=== PATIENT | male | born 1965 | race Caucasian/White ===

== ENCOUNTER 2023-04-17 09:17 | Emergency (ER) | payer BC ==
[~2023-04-17] VITALS: Ht 193 cm; Wt 113.4 kg
[~2023-04-17 09:17] MED LIST: LISI40TA9 PO
[2023-04-17 09:37] LABS: BASOPHILS # (AUTO) 0.1 10^3/uL (0.0-0.1); BASOPHILS % (AUTO) 1 % (0-10); EOSINOPHILS # (AUTO) 0.1 10^3/uL (0.0-0.3); EOSINOPHILS % (AUTO) 1 % (0-10); HEMATOCRIT 43 % (40-54); HEMOGLOBIN 14.9 g/dL (13.3-17.7); LYMPHOCYTES # (AUTO) 1.5 10^3/uL (1.0-4.0); LYMPHOCYTES % (AUTO) 27 % (12-44); MEAN CORPUSCULAR HEMOGLOBIN 32 pg (25-34); MEAN CORPUSCULAR HGB CONC 35 g/dL (32-36); MEAN CORPUSCULAR VOLUME 92 fL (80-99); MEAN PLATELET VOLUME 8.3 fL (9.0-12.2); MONOCYTES # (AUTO) 0.5 10^3/uL (0.0-1.0); MONOCYTES % (AUTO) 9 % (0-12); NEUTROPHILS # (AUTO) 3.4 10^3/uL (1.8-7.8); NEUTROPHILS % (AUTO) 61 % (42-75); PLATELET COUNT 321 10^3/uL (130-400); WHITE BLOOD COUNT 5.5 10^3/uL (4.3-11.0)
--- NOTE | 2023-04-17 09:41 | ED Chest Pain ---
General Chief Complaint: Chest Pain Stated Complaint: CHEST PAINS Nursing Triage Note: PT AMB TO RM 2 WITH COMPLAINT OF CP. STATES PAIN STARTED THIS MORNING AROUND 7AM. STATES BOTH ARMS ARE NUMB AND HAS JAW PAIN. TOOK 325 [facility] BUREAU DIRECTOR. STATES PT HAD CALCIFICATION TEST DONE RECENTLY, AND HAS FOLLOW UP APPOINTMENT WITH DR BARAHONA IN MAY. PT ALSO COMPLAINING OF FEELING LIGHTHEAD AND DIZZY. Source: patient (RENATA GRANT) History of Present Illness Date Seen by Provider: Apr 17, 2023 Time Seen by Provider: 09:30 Initial Comments 9:30 - Patient presents with his to the ED. He says that he woke up at 7 am this morning with chest discomfort, and pain and numbness in bilateral arms as well as his jaw. He says that he is not having any radiation to his back or shoulder. He states that he is feeling light headed and dizzy at this time. His believes that he looks more flush than he normally does. He recently had a calcification test done that they say did not show good results. They have an appointment with their actuarial mathematician in May. He denies any nausea, vomiting, fever, edema, headache or visual problems. 10:50 - Patients lab work comes back unremarkable, as well as his chest X-ray. He states that he his chest pain has gotten better but his chest still feels "funny." He says that the numbness and tingling in his arms and hands has ceased at this time. He says that his discomfort is minimal right now compared to a 4/10 earlier when presented. He is good with the plan to draw labs again at 11:25. Timing/Duration: 1-3 hours Location: central Radiation: jaw, arms (bilateral) Activities at Onset: none Prior CP/Workup: angina, other (coronary artery scan) [facility]SA po BUREAU DIRECTOR: Yes Associated Symptoms: diaphoresis, dizziness, weakness (RENATA GRANT) Allergies and Home Medications Allergies Coded Allergies: No Known Drug Allergies (Verified , 08/03/15) Patient Home Medication List Home Medication List Reviewed: Yes (RENATA GRANT) Home Medication List Reviewed: Yes (TABITHA COTA DO) Lisinopril (Lisinopril) 40 Mg Tablet, 40 MG PO DAILY, (Reported) Entered as Reported by: HILARY MCCLURE on 07/30/15 1050 Review of Systems Review of Systems Constitutional: diaphoresis, dizziness, weakness EENTM: No Symptoms Reported Respiratory: No Symptoms Reported; Denies Orthopnea, Denies Shortness of Air Cardiovascular: Chest Pain; Denies Edema; Lightheadedness; Denies Syncope Gastrointestinal: No Symptoms Reported Skin: change in hair/nails (longitudinal ridging) Psychiatric/Neurological: No Symptoms Reported (RENATA GRANT) All Other Systems Reviewed Negative Unless Noted: Yes (RENATA GRANT) Past Dxdbsrm-Twwzom-Ecanss Hx Patient Social History Tobacco Use?: No Use of E-Cig and/or Vaping dev: No Substance use?: No Alcohol Use?: Yes Alcohol type: Beer Alcohol Frequency: Daily Pt feels they are or have been: No (RENATA GRANT) Physical Exam Vital Signs Vital Signs - First Documented 04/17/23 09:19 Temp 36.4 Pulse 86 Resp 25 B/P (MAP) 172/97 (122) Pulse Ox 96 O2 Delivery Room Air (DETAR,TABITHA W DO) Vital Signs Capillary Refill : Less Than 3 Seconds (RENATA GRANT) Height, Weight, BMI Height: 6'4.00" Weight: 240lbs. 0.0oz. [id number]; 30.00 BMI Method: General Appearance: No Apparent Distress, WD/WN Neck: Non Tender, Supple Respiratory: Lungs Clear, Normal Breath Sounds, No Accessory Muscle Use, No Respiratory Distress Cardiovascular: Regular Rate, Rhythm, No Edema, No Gallop, No Murmur Extremity: Non Tender, No Calf Tenderness Neurologic/Psychiatric: Alert, Oriented x3 (RENATA GRANT) Progress/Results/Core Measures Results/Orders Lab Results Laboratory Tests Test 04/17/23 09:25 04/17/23 11:25 Range/Units White Blood Count 5.5 4.3-11.0 10^3/uL Red Blood Count 4.69 4.30-5.52 10^6/uL Hemoglobin 14.9 13.3-17.7 g/dL Hematocrit 43 40-54 % Mean Corpuscular Volume 92 80-99 fL Mean Corpuscular Hemoglobin 32 25-34 pg Mean Corpuscular Hemoglobin Concent 35 32-36 g/dL Red Cell Distribution Width 12.3 10.0-14.5 % Platelet Count 321 130-400 10^3/uL Mean Platelet Volume 8.3 L 9.0-12.2 fL Immature Granulocyte % (Auto) 0 % Neutrophils (%) (Auto) 61 42-75 % Lymphocytes (%) (Auto) 27 12-44 % Monocytes (%) (Auto) 9 0-12 % Eosinophils (%) (Auto) 1 0-10 % Basophils (%) (Auto) 1 0-10 % Neutrophils # (Auto) 3.4 1.8-7.8 10^3/uL Lymphocytes # (Auto) 1.5 1.0-4.0 10^3/uL Monocytes # (Auto) 0.5 0.0-1.0 10^3/uL Eosinophils # (Auto) 0.1 0.0-0.3 10^3/uL Basophils # (Auto) 0.1 0.0-0.1 10^3/uL Immature Granulocyte # (Auto) 0.0 0.0-0.1 10^3/uL Prothrombin Time 12.6 12.2-14.7 SEC INR Comment 0.9 0.8-1.4 Activated Partial Thromboplast Time 28 24-35 SEC Sodium Level 132 L 135-145 MMOL/L Potassium Level 4.3 3.6-5.0 MMOL/L Chloride Level 99 98-107 MMOL/L Carbon Dioxide Level 20 L 21-32 MMOL/L Anion Gap 13 5-14 MMOL/L Blood Urea Nitrogen 9 7-18 MG/DL Creatinine 0.96 0.60-1.30 MG/DL Estimat Glomerular Filtration Rate 92 BUN/Creatinine Ratio 9 Glucose Level 105 70-105 MG/DL Calcium Level 9.5 8.5-10.1 MG/DL Corrected Calcium 9.1 8.5-10.1 MG/DL Magnesium Level 1.8 1.6-2.4 MG/DL Total Bilirubin 0.5 0.1-1.0 MG/DL Aspartate Amino Transf (AST/SGOT) 33 5-34 U/L Alanine Aminotransferase (ALT/SGPT) 28 0-55 U/L Alkaline Phosphatase 58 40-136 U/L Myoglobin 57.5 10.0-92.0 NG/ML Troponin I < 0.028 < 0.028 <0.028 NG/ML Total Protein 7.8 6.4-8.2 GM/DL Albumin 4.5 3.2-4.5 GM/DL Lipase 14 8-78 U/L (TABITHA COTA DO) My Orders Orders - TABITHA COTA DO Ekg Tracing (04/17/23 09:20) Cbc And Automated Diff (04/17/23 09:32) Magnesium (04/17/23 09:32) Chest 1 View, Ap/Pa Only (04/17/23 09:32) Ekg Tracing (04/17/23 09:32) Comprehensive Metabolic Panel (04/17/23 09:32) Myoglobin Serum (04/17/23 09:32) Protime With Inr (04/17/23 09:32) Partial Thromboplastin Time (04/17/23 09:32) O2 (04/17/23 09:32) Monitor-Rhythm Ecg Trace Only (04/17/23 09:32) Ed Iv/Invasive Line Start (04/17/23 09:32) Lipase (04/17/23 09:32) Troponin I [place] (04/17/23 09:32) Aspirin Chewable Tablet (Aspirin Chewabl (04/17/23 09:45) Nitroglycerin 0.4 Mg Btl 25's (Nitroglyc (04/17/23 10:00) Nitroglycerin 0.4 Mg Btl 25's (Nitroglyc (04/17/23 09:48) Troponin I [place] (04/17/23 11:36) (TABITHA COTA DO) Medications Given in ED Current Medications Medications Dose Ordered Sig/Obdulia Route Start Time Stop Time Status Last Admin Dose Admin Nitroglycerin 0.4 mg NEEDED PRN SL 04/17/23 10:00 04/17/23 09:49 0.4 MG (TABITHA COTA DO) Vital Signs/I&O 04/17/23 09:19 Temp 36.4 Pulse 86 Resp 25 B/P (MAP) 172/97 (122) Pulse Ox 96 O2 Delivery Room Air (TABITHA COTA DO) Blood Pressure Mean: 122 Progress Progress Note : Time: 09:35 Progress Note 09:35 - Patient presents to ED after having numbness and tingling in his arms and hands, 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 He says that this is not abnormal for him, but then the chest pain started about 7 am this morning. He then took 325 mg of Aspirin at 8 am this morning. He had a coronary artery scan done recently and states that his score was not good but has a cardiology appointment in May. His is very worried because he does not like to go to the doctor, so for him to come to the ED is a big deal. He is currently anxious and worried about the pain that he is having. He says the pain does not radiate to his back and reports no other symptoms besides the chest pain and numbness and tingling in the bilateral arms. His ECG came back within normal limits. Plan is to give the patient Nitroglycerin at this point since he has already taken Aspirin. Draw CBC, CMP including Troponin, coagulation studies and chest X-ray at this time. (RENATA GRANT) Progress Note : Progress Note Delta troponin unchanged. Patient states he is feeling much better after nitro. Will send home he does have close follow-up with cardiology. He will return if symptoms recur. At this point do not feel this is acute coronary syndrome. No indication for emergent cardiology consultation at this time. Patient agrees. Advise daily aspirin will provide nitro as needed however if symptoms recur and nitro does not seem to get his symptoms under control please return to the emergency department. (TABITHA COTA DO) EKG : Rhythm: Normal Sinus (TABITHA COTA DO) Diagnostic Imaging Diagonstic Imaging: Xray (nad) (TABITHA COTA DO) CP/AMI: Aspirin, ECG, Nitrates (TABITHA COTA DO) Departure Impression Primary Impression: Chest pain Qualified Codes: R07.9 - Chest pain, unspecified Disposition: HOME, SELF-CARE Condition: Improved Departure-Patient Inst. Referrals: SHAHZAD BRANNON MD (PCP/Family) Primary Care Physician Patient Instructions: Chest Pain That Is Not Caused by the Heart (DC) Scripts Nitroglycerin (Nitroglycerin) 0.4 Mg Tab.subl 0.4 MG SL UD PRN for CHEST PAIN for 14 Days, #30 TAB Prov: TABITHA COTA DO 04/17/23 RENATA GRANT Apr 17, 2023 09:41 TABITHA COTA DO Apr 17, 2023 10:30
[2023-04-17 09:42] LABS: ALBUMIN 4.5 GM/DL (3.2-4.5); CHLORIDE 99 MMOL/L (98-107); POTASSIUM 4.3 MMOL/L (3.6-5.0); SODIUM 132 MMOL/L (135-145)
[2023-04-17 09:43] LABS: CALCIUM 9.5 MG/DL (8.5-10.1)
[2023-04-17 09:44] LABS: GLUCOSE 105 MG/DL (70-105)
[2023-04-17 09:45] LABS: TOTAL PROTEIN 7.8 GM/DL (6.4-8.2)
[2023-04-17] MEDS ORDERED: ASPIRIN 81 MG CHEWABLE TABLET PO ONE (09:45)
[2023-04-17 09:46] LABS: BILIRUBIN,TOTAL 0.5 MG/DL (0.1-1.0); CARBON DIOXIDE 20 MMOL/L (21-32); INR 0.9 (0.8-1.4); PROTHROMBIN TIME PATIENT 12.6 SEC (12.2-14.7)
[2023-04-17 09:48] LABS: ALKALINE PHOSPHATASE 58 U/L (40-136); CREATININE SERUM 0.96 MG/DL (0.60-1.30); GFR ESTIMATED 92
[2023-04-17] MEDS ORDERED: NITROGLYCERIN 0.4 MG SL TABLETS BTL 25'S SL ONE (09:48)
[2023-04-17 09:49] LABS: BUN/CREATININE RATIO 9
[2023-04-17 09:51] LABS: ALANINE AMINOTRANSFERASE 28 U/L (0-55); MAGNESIUM 1.8 MG/DL (1.6-2.4)
[2023-04-17 09:52] LABS: LIPASE 14 U/L (8-78)
--- NOTE | 2023-04-17 09:58 | Diagnostic Imaging Report ---
INDICATION: Chest pain. FINDINGS: The lungs are clear. There is no failure, effusion, or pneumothorax. IMPRESSION: Unremarkable frontal chest. Dictated by: Dictated on workstation # [id number]
[2023-04-17] MEDS ORDERED: NITROGLYCERIN 0.4 MG SL TABLETS BTL 25'S SL PRN (10:00)
[2023-04-17] MEDS ORDERED: NITR0.4T39 SL (12:21)
[2023-04-17 12:40] VITALS: BP 157/101
== END 2023-04-17 12:40 | disposition home or self-care (01) ==
LOC: EDUNIT# 09:17 → ER 09:19
DX: R07.89 Other chest pain (principal); F06.4 Anxiety disorder due to known physiological condition
CPT/HCPCS: 36415; 71045; 80053; 83690; 83735; 83874; 84484; 85025; 85610; 85730; 93005; 93041